=== PATIENT | female | born 1960 | race Caucasian/White ===

== ENCOUNTER 2019-04-04 15:32 | Emergency (ER) | payer OTHER, BC ==
[2019-04-04 15:39] VITALS: BP 115/46; PULSE 75; TEMP 98.3; BMI 21.4
--- NOTE | 2019-04-04 16:34 | PDOC ---
History of Present Illness - General Chief Complaint: Injury Stated Complaint: FALL/LF SIDE RIB INJURY Time Seen by Provider: 04/04/19 16:04 History Source: Patient Exam Limitations: Clinical Condition - History of Present Illness Initial Comments: 04/04/19 16:44 Patient with past medical history of neuroblastoma impinging vestibular nerve with a history of imbalance and using walker to help walk presented for evaluation of persistent left lower rib cage pain status post slip a week ago and hitting left side of her chest wall in the bathtub. Patient denies hitting head or loss of consciousness during fall. Patient report history of fall over 5 years ago with suspected left rib fracture but nothing was done no imaging was done. Denies shortness of breath. Patient on home Dilaudid for nerve pain for neuroblastoma. Denies any other symptoms Is this a multiple visit Asthma Patient?: No Timing/Duration: 1 week Past History - Past Medical History Allergies/Adverse Reactions: Allergies Allergy/AdvReac Type Severity Reaction Status Date / Time erythromycin base Allergy Verified 04/04/19 15:39 [Erythromycin Base] Home Medications: Ambulatory Orders Aripiprazole [Abilify -] 5 mg PO DAILY 08/25/12 Diazepam [Valium -] 10 mg PO TID PRN 08/25/12 Hydromorphone HCl [Dilaudid] 8 mg PO Q4H 08/25/12 Methadone [Dolophine -] 20 mg PO DAILY 08/25/12 Venlafaxine HCl [Effexor] 150 mg PO DAILY 08/25/12 Oxymorphone HCl [Opana ER] 60 mg PO BID 12/13/13 Sulfamethoxazole/Trimethoprim [Bactrim DS -] 1 tab PO BID #14 tablet 12/13/13 Diclofenac Sodium [Voltaren] 1 applic TP BID PRN #1 tube 04/04/19 COPD: No Other medical history: neurofibromitosis. 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 - Surgical History Neurologic Surgery: Yes (BRAIN) - Immunization History Immunization Up to Date: Yes - Psycho Social/Smoking Cessation Hx Smoking Status: Yes Smoking History: Never smoked Number of Cigarettes Smoked Daily: 0 Hx Alcohol Use: No Review of Systems - Review of Systems Able to Perform ROS?: Yes Is the patient limited Arabic proficient: No Constitutional: No: Chills, Fever, Malaise HEENTM: No: Symptoms Reported, See HPI, Eye Pain, Blurred Vision, Tearing, Recent change in vision, Double Vision, Cataracts, Ear Pain, Ocular Prothesis, Ear Discharge, Nose Pain, Nose Congestion, Tinnitus, Nose Bleeding, Hearing Loss , Throat Pain, Throat Swelling, Mouth Pain, Dental Problems, Difficulty Swallowing, Mouth Swelling, Other Respiratory: Yes: Symptoms reported, See HPI, Shortness of Breath (intermittent from rib pain). No: Cough, Orthopnea, SOB with Exertion, SOB at Rest, Stridor, Wheezing, Productive cough, Hemoptysis, Other Cardiac (ROS): No: Symptoms Reported, See HPI, Chest Pain, Edema, Irregular Heart Rate, Lightheadedness, Palpitations, Syncope, Chest Tightness, Other ABD/GI: No: Symptoms Reported, Nausea, Vomiting Musculoskeletal: Yes: Symptoms Reported, See HPI, Muscle Pain (left lateral lower ribcage pain) Integumentary: Yes: Symptoms Reported, Bruising (ecchymosis to lateral side of left flank area from fall) All Other Systems: Reviewed and Negative *Physical Exam - Vital Signs Last Vital Signs Temp Pulse Resp BP Pulse Ox 98.3 F 75 18 115/46 L 96 04/04/19 15:35 04/04/19 15:35 04/04/19 15:35 04/04/19 15:35 04/04/19 15:35 - Physical Exam 04/04/19 16:34 GENERAL: Well developed, well nourished. Awake and alert. No acute distress. NECK: Supple. Full ROM. CARDIOVASCULAR: Regular rate and rhythm. No murmurs, rubs, or gallops. PULMONARY: No evidence of respiratory distress. Lungs clear to auscultation bilaterally. No wheezing, rales or rhonchi. ABDOMINAL: Soft. Non-tender. Non-distended. No rebound or guarding. No organomegaly. Normoactive bowel sounds. MUSCULOSKELETAL Normal range of motion at all joints. moderate point tenderness to lateral aspect of left lower ribcage over 12th rib SKIN: Warm and dry. Normal capillary refill. 1cm localized area of ecchymosis to lateral aspect of left lower flank area NEUROLOGICAL: Alert, awake, appropriate. ambulating with walker. PSYCHIATRIC: Cooperative. Good eye contact. Appropriate mood General Appearance: Yes: Nourished, Appropriately Dressed. No: Apparent Distress ED Treatment Course - RADIOLOGY Radiology Studies Ordered: Category Date Time Status RIBS-LEFT SIDE [RAD] Stat Radiology 04/04/19 16:15 Ordered Medical Decision Making - Medical Decision Making 04/04/19 16:46 Patient with past medical history of neuroblastoma impinging vestibular nerve with a history of imbalance and using walker to help walk presented for evaluation of persistent left lower rib cage pain status post slip a week ago and hitting left side of her chest wall in the bathtub. Patient denies hitting head or loss of consciousness during fall. Patient report history of fall over 5 years ago with suspected left rib fracture but nothing was done no imaging was done. Denies shortness of breath. Patient on home Dilaudid for nerve pain for neuroblastoma. Denies any other symptoms 04/04/19 16:49 Exam significant for moderate point tenderness to lateral aspect of left lower rib cage over 12 rib. Localized 1 cm area of superficial ecchymosis to lateral lower aspect of left abdominal wall. Lungs clear to auscultation bilateral. Rib series chest x-ray done shows old fracture to left sixth rib with no acute rib fracture. Results discussed with patient and patient advised to continue home Dilaudid medication as needed for pain and will add topical diclofenac for breakthrough pain with PCP follow-up Discharge - Discharge Information Problems reviewed: Yes Clinical Impression/Diagnosis: Contusion of rib on left side Qualifiers: Encounter type: initial encounter Qualified Code(s): S20.212A - Contusion of left front wall of thorax, initial encounter Condition: Stable Disposition: HOME - Admission No - Additional Discharge Information Prescriptions: Diclofenac Sodium [Voltaren] 1 applic TP BID PRN #1 tube PRN Reason: rib pain - Follow up/Referral Referrals: Jamie Sampson [Primary Care Provider] - - Patient Discharge Instructions Patient Printed Discharge Instructions: DI for Rib Contusion Additional Instructions: X-ray of your ribs shows old fracture to left side of sixth rib. No new fractures seen on x-ray today. Rest and apply hot compress to rib cage as needed for pain. Continue with home pain medication as needed for pain and use prescribed topical cream as needed for breakthrough pain. Follow-up with primary care - Post Discharge Activity
== END 2019-04-04 16:51 | disposition home or self-care (01) ==
LOC: JERFT 15:32
DX: S20.212A Contusion of left front wall of thorax, initial encounter (principal); W18.2XXA Fall in (into) shower or empty bathtub, initial encounter; Y93.E1 Activity, personal bathing and showering; Y92.018 Other place in single-family (private) house as the place of occurrence of the external cause; Y99.8 Other external cause status; R26.81 Unsteadiness on feet; Z99.89 Dependence on other enabling machines and devices; H91.8X3 Other specified hearing loss, bilateral; Z86.79 Personal history of other diseases of the circulatory system
CPT/HCPCS: 71101-TC-LT-FY; 99283-25